=== PATIENT | female | born 1990 | race Caucasian/White ===

== ENCOUNTER 2016-08-06 08:23 | Inpatient (IN) | payer BC, MEDICAID ==
[2016-08-06] MEDS ORDERED: Dinoprostone* 10 MG VAG.SUPP VAGINAL ONE (09:16)
[2016-08-07] MEDS ORDERED: Nalbuphine* 20 MG/ML 1 ML VIAL IV ONE (00:28)
[2016-08-07] MEDS ORDERED: Promethazine INJ(RESTRICTED)* 25 MG/ML 1 ML VIAL IV ONE (00:28)
[2016-08-07] MEDS ORDERED: Oxytocin in LR* 20 UNITS/1,000 ML BAG IVPB ONE (08:43)
[2016-08-07] MEDS ORDERED: Oxytocin in LR* 20 UNITS/1,000 ML BAG IVPB SCH (09:00)
[2016-08-07 10:11] LABS: Hematocrit 35 % (35-47); Hemoglobin 11.8 g/dl (12.0-16.0); Mean Corpuscular HGB Conc 34 g/dl (31-36); Mean Corpuscular Hemoglobin 31 pg (27-31); Mean Corpuscular Volume 91 fL (80-97); Mean Platelet Volume 12 um3 (7.4-10.4); Red Blood Count 3.83 10^6/ul (4.0-5.4); Red Cell Distribution Width 14 % (10.5-15); White Blood Count 11.2 10^3/ul (3.5-10.8)
[2016-08-07 10:15] LABS: Add Diff/Slide Review? Slide Review Added; Comments Flag Yes
[2016-08-07 12:58] LABS: Mono Internal Control QC Line Present
[2016-08-07] MEDS ORDERED: OBEPIDURAL* 250 ML ONE (14:20)
[2016-08-07] MEDS ORDERED: Sodium Citrate/Citric Acid* 15 ML UDC ONE (18:02)
[2016-08-07] MEDS ORDERED: Sodium Citrate/Citric Acid* 15 ML UDC PO ONE ×2 (18:04→18:54)
[2016-08-07] MEDS ORDERED: ceFOXitin 2 GM IVPREMIX* 2 GM/50 ML BAG IVPB ONE (18:04)
[2016-08-07] MEDS ORDERED: ceFOXitin 2 GM IVPREMIX* 2 GM/50 ML BAG ONE (18:10)
[2016-08-07] MEDS ORDERED: Sodium Bicarbonate 8.4% SYR* 10 ML SYRINGE ONE (18:43)
[2016-08-07] MEDS ORDERED: OXYTOCIN* 10 UNITS/ML 1 ML VIAL ONE ×2 (18:43→19:01)
[2016-08-07] MEDS ORDERED: Ondansetron INJ* 2 MG/ML VIAL ONE (18:43)
[2016-08-07] MEDS ORDERED: Morphine PF AMP (0.5MG/ML)* 5 MG/10 ML AMP ONE (18:43)
[2016-08-07] MEDS ORDERED: Lidocaine 2% EPI 1:200000 MPF* 20 ML VIAL ONE (18:43)
[2016-08-07] MEDS ORDERED: Buffered Lidocaine 1% SYR 3ML* 3 ML/SYR SYRINGE INTRADERM ONE (18:54)
[2016-08-07] MEDS ORDERED: diPHENhydraMINE IV* 50 MG/ML 1 ml VIAL (BENADRYL) IV PRN (18:55)
[2016-08-07] MEDS ORDERED: Nalbuphine* 20 MG/ML 1 ML VIAL IV PRN (18:55)
[2016-08-07] MEDS ORDERED: PROCHLORPERAZINE INJ 5 MG/ML 2 ML VIAL IV PRN (18:55)
[2016-08-07] MEDS ORDERED: DiMENhydriNATE IV* 50 MG/ML VIAL IV PUSH PRN ×2 (18:55→18:59)
[2016-08-07] MEDS ORDERED: Ondansetron INJ* 2 MG/ML VIAL IV PRN ×2 (18:55→18:59)
[2016-08-07] MEDS ORDERED: Naloxone* 0.4 MG/ML 1 ML VIAL IV PRN (18:55)
[2016-08-07] MEDS ORDERED: PROCHLORPERAZINE INJ 5 MG/ML 2 ML VIAL ONE (18:56)
[2016-08-07] MEDS ORDERED: fentaNYL* 50 MCG/ML 2 ML VIAL (100 MCG VIAL) IV PRN (18:59)
[2016-08-07] MEDS ORDERED: Scopolamine 1.5 mg* PATCH TRANSDERM PRN (18:59)
[2016-08-07] MEDS ORDERED: Scopolamine 1.5 mg* PATCH TRANSDERM SCH (19:00)
[2016-08-07] MEDS ORDERED: Scopolamine PATCH Remove* 1 NOTE MISC PATCH OFF SCH (19:00)
[2016-08-07] MEDS ORDERED: Phenylephrine IV* 40 MCG/ML 10 ML SYRINGE ONE (19:23)
[2016-08-07] MEDS ORDERED: Glycerin ADULT SUPP PR PRN (19:27)
[2016-08-07] MEDS ORDERED: Dibucaine 1% 28.35 GM TUBE PR PRN (19:27)
[2016-08-07] MEDS ORDERED: Witch Hazel PAD* JAR TOPICAL PRN (19:27)
[2016-08-07] MEDS ORDERED: Acetaminophen TAB* 325 MG PO PRN (19:27)
[2016-08-07] MEDS: Ibuprofen TAB* 600 MG PO PRN (20:33)
[2016-08-07] MEDS: Docusate CAP* 100 MG PO SCH (22:59)
[2016-08-07] MEDS: Simethicone TAB* 80 MG TAB.CHEW PO SCH (22:59)
[2016-08-07] MEDS: oxyCODONE/Acetamin 5/325 MG* TAB PO PRN (23:03)
[2016-08-08] MEDS: Ibuprofen TAB* 600 MG PO PRN ×3 (03:34→16:46)
[2016-08-08] MEDS: oxyCODONE/Acetamin 5/325 MG* TAB PO PRN ×5 (03:46→20:48)
[2016-08-08 06:57] LABS: Hematocrit 30 % (35-47); Mean Corpuscular HGB Conc 34 g/dl (31-36); Mean Corpuscular Hemoglobin 31 pg (27-31); Mean Corpuscular Volume 91 fL (80-97); Mean Platelet Volume 11 um3 (7.4-10.4); Red Blood Count 3.24 10^6/ul (4.0-5.4); Red Cell Distribution Width 14 % (10.5-15); White Blood Count 14.6 10^3/ul (3.5-10.8)
[2016-08-08 07:18] LABS: Comments Flag Yes
[2016-08-08] MEDS: Simethicone TAB* 80 MG TAB.CHEW PO SCH ×4 (07:26→20:48)
[2016-08-08] MEDS: Docusate CAP* 100 MG PO SCH ×3 (07:27→20:48)
--- NOTE | 2016-08-08 08:31 | OP ---
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 Gaye Shay, certified nurse cylinder grinder. 2. Sayra Weeks, licensed weigher. ANESTHESIA: Epidural. PRE-OP DIAGNOSES: Intrauterine at 39 weeks, gestational diabetes, with induction of labor with persistent category II tracing, remote from delivery. POST-OP DIAGNOSES: Intrauterine at 39 weeks, gestational diabetes, with induction of labor with persistent category II tracing, remote from delivery. OPERATIVE PROCEDURE: Primary low-transverse section. ESTIMATED BLOOD LOSS: 600 cc. SPECIMEN SENT TO PATHOLOGY: Cord blood. FINDINGS: Delivery of a viable female weighing 6 pounds 2 ounces with Apgars of 9 and 9 with clear fluid. IV FLUIDS: She received 1400 cc of IV crystalloid fluid. URINE OUTPUT: 400 cc of clear urine. ESTIMATED BLOOD LOSS: 600 cc. INTRAOPERATIVE FINDINGS: Intraoperatively, she had a normal uterus, bowel, bladder, and adnexa. COMPLICATIONS: There were no complications. DESCRIPTION OF PROCEDURE: The patient was taken to the operating room where she was identified. She was placed on the operating room table where an epidural anesthetic was obtained without difficulty. She was then placed in a supine position with a leftward tilt, prepped and draped in normal sterile fashion. A Pfannenstiel skin incision was made with a knife and carried through to the underlying layer of fascia. The facia was then nicked in the midline and extended laterally with curved Camejo scissors. The fascia was then grasped superiorly and inferiorly with Orlin clamps and dissected off sharply from the rectus muscle. The rectus muscle was in the midline bluntly. The peritoneum was identified, grasped with pickups, entered sharpy with Metzenbaum scissors, and extended superiorly and inferiorly sharply. A bladder blade was inserted in the patient's abdomen. A bladder flap was created over which the bladder blade was then reinserted. A low transverse uterine incision was made with the knife. The uterine incision was then extended laterally. The amniotic sac was ruptured. The infant's head was then grasped and delivered atraumatically. The nose and mouth were suctioned at the incision site. The rest of the infant's body was then delivered atraumatically. The cord was clamped and cut, and the infant was handed off to awaiting bag washer. Cord bloods were obtained. The placenta was then removed manually. The uterus was then exteriorized and cleared of all clot and debris using moist laparotomy sponges. The uterine incision was then closed using 0 Polysorb suture in a running locked fashion with a second imbricating layer of 0 Polysorb suture with good hemostasis. The uterus was then returned to the patient's abdomen. The gutters were then cleared of all clots and debris using moist laparotomy sponges. Two [id number] stitches were then used to completely obtain hemostasis of the uterine incision. Once hemostasis was obtained, the sponge, lap, and needle counts were correct x2. All instruments were removed from the patient's abdomen. The peritoneum was then closed using 3 -0 Polysorb suture in a running fashion. The fascia was closed using 0 Polysorb suture in a running fashion, and the skin was closed with 4-0 Vicryl in a subcuticular stitch. The patient tolerated the procedure well. Sponge, lap, and needle counts were correct x2. She was then transferred to the recovery room area in stable condition. [id number]/[facility] #: [id number] SRIKANTH
[2016-08-08] MEDS ORDERED: Ferrous Gluconate TAB* 324 MG TAB PO SCH (09:00)
[2016-08-08] MEDS ORDERED: Zolpidem TAB* 5 MG PO PRN (11:00)
[2016-08-09] MEDS: Ibuprofen TAB* 600 MG PO PRN ×4 (00:54→21:59)
[2016-08-09] MEDS: oxyCODONE/Acetamin 5/325 MG* TAB PO PRN ×5 (01:00→21:59)
[2016-08-09] MEDS: Docusate CAP* 100 MG PO SCH ×3 (07:55→21:59)
[2016-08-09] MEDS: Simethicone TAB* 80 MG TAB.CHEW PO SCH ×4 (07:56→21:59)
[2016-08-10] MEDS: oxyCODONE/Acetamin 5/325 MG* TAB PO PRN ×3 (02:10→12:36)
[2016-08-10 08:27] VITALS: BP 115/68
[2016-08-10] MEDS: Ibuprofen TAB* 600 MG PO PRN (08:35)
[2016-08-10] MEDS: Simethicone TAB* 80 MG TAB.CHEW PO SCH ×2 (08:35→12:36)
[2016-08-10] MEDS: Docusate CAP* 100 MG PO SCH (08:35)
[2016-08-10] MEDS ORDERED: Scopolamine PATCH Remove* 1 NOTE MISC PATCH OFF ONE (19:00)
== END 2016-08-10 12:50 | disposition home or self-care (01) | DRG 540 ==
LOC: MCHOBOUT 08:23 → MCHOB 19:21
PROVIDERS: ADMIT Nurse Practitioner; ATTEND Obstetrics & Gynecology
PROC: 10907ZC Drainage of Amniotic Fluid, Therapeutic from Products of Conception, Via Natural or Artificial Opening (ICD-10-PCS; 2016-08-07)
PROC: 3E033VJ Introduction of Other Hormone into Peripheral Vein, Percutaneous Approach (ICD-10-PCS; 2016-08-07)
PROC: 10D00Z1 Extraction of Products of Conception, Low, Open Approach (ICD-10-PCS; principal; 2016-08-07 18:24)
DX: O76 Abnormality in fetal heart rate and rhythm complicating labor and delivery (principal); O24.420 Gestational diabetes mellitus in childbirth, diet controlled; F31.9 Bipolar disorder, unspecified; O99.334 Smoking (tobacco) complicating childbirth; F17.210 Nicotine dependence, cigarettes, uncomplicated; O99.344 Other mental disorders complicating childbirth; Z3A.39 39 weeks gestation of pregnancy; Z37.0 Single live birth
CPT/HCPCS: 36415; 85025; 85060; 86308; 86850; 86900; 86901; A9270-GY; J0694; J0780; J2300; J2405; J2550; J2590

== ENCOUNTER 2016-10-09 08:37 | Emergency (ER) | payer BC, MEDICAID ==
[2016-10-09 08:57] VITALS: BP 117/67
[2016-10-09] MEDS ORDERED: Ipratropium 0.5MG/2.5ML NEB* 0.5 MG/2.5 ML NEB.SOLN INH ONE (09:09)
[2016-10-09] MEDS ORDERED: Albuterol 2.5 MG/3 ML NEB.SOL* (0.083%) INH ONE (09:09)
--- NOTE | 2016-10-09 09:09 | UC ---
Respiratory Complaint HPI - HPI Summary HPI Summary: GRADUAL ONSET OF DYSPNEA STARTING YESTERDAY MORNING. WORSE SINCE THEN. HAS PAIN WITH DEEP INSPIRATION AND ST. ALSO HAS CHEST TIGHTNESS. HAS H/O "NARROW AIRWAY" AND HAS SIMILAR SYMPTOMS WITH HEAVY EXERTION BUT DENIES ANY INCREASED PHYSICAL ACTIVITY RECENTLY. DID NOT USE HER INHALER. IS 2 MONTH S/P . SMOKES 4 CIGS PER DAY. NO FAMILY H/O BLOOD CLOT. DENIES FEVER. - History of Current Complaint Chief Complaint: UCRespiratory Stated Complaint: CHEST CONGESTION Time Seen by Provider: 10/09/16 09:01 Hx Obtained From: Patient Hx Last Menstrual Period: post 2 months Onset/Duration: Gradual Onset, Lasting Days, Still Present Timing: Constant Severity Initially: Moderate Severity Currently: Moderate Pain Intensity: 8 Pain Scale Used: 0-10 Numeric Aggravating Factors: Deep Breaths Alleviating Factors: Nothing Associated Signs And Symptoms: Positive: Dyspnea, Pleuritic Chest Pain. Negative: Fever, Chills, Wheezing, Hemoptysis, Dizziness, Calf Pain, Calf Swelling, Edema, URI, Nasal Congestion, Hoarseness, Sinus Discomfort - Allergies/Home Medications Allergies/Adverse Reactions: Allergies Allergy/AdvReac Type Severity Reaction Status Date / Time No Known Allergies Allergy Verified 08/06/16 08:47 PMH/Surg Hx/FS Hx/Imm Hx Endocrine History Of: Denies: Diabetes, Thyroid Disease Cardiovascular History Of: Denies: Cardiac Disorders, Hypertension Respiratory History Of: Denies: COPD, Asthma GI/ History Of: Denies: Ulcer Psychological History Of: Reports: Anxiety, Depression, Bipolar Disorder - Surgical History Surgical History: Yes Surgery Procedure, Year, and Place: tonsils and adenoids removed, . appy - Family History Known Family History: Positive: Cardiac Disease, Diabetes - Social History Alcohol Use: Rare Alcohol Amount: social Substance Use Type: None Smoking Status (MU): Light Every Day Tobacco Smoker Type: Cigarettes Amount Used/How Often: 4 cig/day Length of Time of Smoking/Using Tobacco: 7-8 years Have You Smoked in the Last Year: Yes Household Exposure Type: Cigarettes - Immunization History Most Recent Influenza Vaccination: unknown Most Recent Tetanus Shot: 05/22/16 Most Recent Pneumonia Vaccination: never Review of Systems Constitutional: Negative ENT: Sore Throat Respiratory: Shortness Of Breath Cardiovascular: Chest Pain Gastrointestinal: Negative All Other Systems Reviewed And Are Negative: Yes Physical Exam Triage Information Reviewed: Yes Appearance: Well-Appearing, No Pain Distress, Well-Nourished Vital Signs: Initial Vital Signs Temp 98.0 F 10/09/16 08:53 Pulse 92 10/09/16 08:53 Resp 22 10/09/16 08:53 BP 117/67 10/09/16 08:53 Pulse Ox 99 10/09/16 08:53 Vital Signs Reviewed: Yes Eyes: Positive: Conjunctiva Clear ENT: Positive: Hearing grossly normal Neck: Positive: Supple, Nontender, No Lymphadenopathy Respiratory: Positive: Normal breath sounds, Accessory muscle use Cardiovascular Exam: Normal Abdomen Description: Positive: Soft Musculoskeletal: Positive: No Edema Neurological: Positive: Alert Psychological: Positive: Age Appropriate Behavior Skin: Negative: rashes UC Diagnostic Evaluation - Laboratory O2 Sat by Pulse Oximetry: 99 - Radiology Xray Interpretation: No Acute Changes - CXR Radiology Interpretation Completed By: Radiologist Respiratory Course/Dx - Course Course Of Treatment: FELT BETTER AFTER DUONEB. CXR UNREMARKABLE. DISCUSSED TRANSFER TO ER FOR FURTHER EVALUATION. PT DECLINES. ADVISED TO GO TO ER WITHOUT FAIL IF SX DO NOT CONTINUE TO IMPROVE. - Differential Dx/Diagnosis Provider Diagnoses: BRONCHOSPASM Discharge - Discharge Plan Condition: Stable Disposition: HOME Patient Education Materials: Bronchospasm (ED) Referrals: Jose Rodriguez MD [Primary Care Provider] - If Needed Additional Instructions: CHEST XRAY UNREMARKABLE. USE YOUR INHALER NEEDED FOR SYMPTOM CONTROL. IF YOUR SYMPTOMS DO NOT CONTINUE TO IMPROVE GO TO THE ER WITHOUT FAIL FOR FURTHER EVALUATION.
--- NOTE | 2016-10-09 10:26 | RAD ---
INDICATION: Short of breath COMPARISON: None TECHNIQUE: PA and lateral dual-energy views were obtained. FINDINGS: Bones/Soft Tissues: There are no acute bony findings. Cardiomediastinal: The cardiomediastinal silhouette is normal. Lungs: There are no infiltrates. Pleura: There are no pleural effusions. Other: None IMPRESSION: NO ACTIVE DISEASE.
== END 2016-10-09 10:39 | disposition home or self-care (01) ==
LOC: UCEAST 08:37
DX: J98.01 Acute bronchospasm (principal); F41.9 Anxiety disorder, unspecified; F31.9 Bipolar disorder, unspecified; F17.210 Nicotine dependence, cigarettes, uncomplicated
CPT/HCPCS: 71020; 99212; G0463; J7644

== ENCOUNTER 2018-11-17 00:27 | Inpatient (IN) | payer SELFPAY ==
[2018-11-17] MEDS ORDERED: Lactated Ringers 1000 ML Bag* 1,000 ML IV ONE (00:41)
[2018-11-17] MEDS ORDERED: Buffered Lidocaine 1% SYRIN* 1 ML/SYRINGE INTRADERM ONE (00:41)
--- NOTE | 2018-11-17 00:50 | HP ---
General Information - Reason for Visit Patient presents in labor. - General Information Maternal Age: 26 Grav: 2 Para: 1 SAB: 0 IEA: 0 Estimated Due Date: 11/22/18 Determined By: Early Ultrasound Gestational Age in Weeks/Days: 39 Maternal Blood Type and Rh: O Positive - Results this Serology/RPR Result: Non-Reactive Rubella Result: Immune HBsAg Result: Negative HIV Result: Negative GBS Culture Result: Negative Past Medical History Delivery History: Hx C/Section, See Records Pertinent Past Medical History: See Records Past Medical History Comment: Bipolar disorder Asthma Migraines Pertinent Past Surgical History: See Records Past Surgical History Comment: Tonsillectomy Appendectomy section Pertinent Family History: See Records - Antepartal Records Antepartal Records: Reviewed, Complicated by: - Thrombocytopenia Review of Systems Constitutional: Uncomfortable CV Complaint: No Respiratory: Shortness of Breath: No Gastrointestinal: No Nausea/Vomiting, Normal Bowel Movement Genitourinary: No Dysuria, No Bleeding, No Leaking Fluid Musculoskeletal: No Complaint, No Epigastric Pain Neurological: No Headache, No Visual Changes Movement: Normal Exam Allergies/Adverse Reactions: Allergies No Known Allergies Allergy (Verified 08/06/16 08:47) Temp 97.0 RR 18 BP 107/54 - Measurements Height: 5 ft 5 in Weight: 152 lb Body Mass Index (BMI): 25.2 Pre- Weight: 128 lb - Exam Breast: Breast Exam Deferred CVA: No CVA Tenderness Extremities: No Edema Heart: Normal Rhythm/Heart Sounds HEENT: No Significant Findings Lungs: Clear Bilaterally Rectal: Rectal Exam Deferred Reflexes: DTR 2+ Thyroid: No Thyromegaly - Abdominal Exam Abdomen Exam: Non-Tender, Fundal Height Consistent with Dates - Ultrasound/Biophysical Profile Ultrasound Status: Not Done Targeted Exam Findings See L&D Outpatient Visit Provider Note for Findings: N/A Cervical Exam: 5cm Effacement: 90% Station: 0 Presenting Part: Vertex Membrane Status: Intact EFM Findings - External Monitor Findings Baseline Heart Rate: 130 Contractions: Regular, Moderate, 45-90 Seconds Assessment/Plan - Assessment Patient with at term in labor, Hx prior section. - Obstetrical Risk Factors Obstetrical Risk Factors: Previous C/Section in Labor, Psychosocial Issues, Psychiatric Issues - Plan Plan: IV Hydration, Admit - Anticipate Vaginal Delivery - Date/Time of Admission Date of Admission: 11/17/18 Time of Admission: 23:50
[2018-11-17] MEDS ORDERED: Lactated Ringers 1000 ML Bag* 1,000 ML IV SCH ×2 (01:00→02:00)
[2018-11-17 01:19] LABS: Hematocrit 35 % (35-47); Hemoglobin 11.9 g/dL (12.0-16.0); Mean Corpuscular HGB Conc 34 g/dL (31-36); Mean Corpuscular Hemoglobin 30 pg (27-31); Mean Corpuscular Volume 89 fL (80-97); Red Blood Count 3.98 10^6 /uL (3.70-4.87); Red Cell Distribution Width 14 % (10.5-15); White Blood Count 16.8 10^3/uL (3.5-10.8)
[2018-11-17] MEDS ORDERED: Oxytocin in LR* 20 UNITS/1,000 ML BAG IVPB ONE (01:19)
[2018-11-17 01:30] LABS: ABS Basophils 0.1 10^3/ul (0-0.2); ABS Eosinophils 0.1 10^3/ul (0-0.6); ABS Lymphocytes 4.5 10^3/ul (1.0-4.8); ABS Monocytes 1.1 10^3/ul (0-0.8); Eosinophil % 0.5 %; Nucleated Red Blood Cells % 0.1
[2018-11-17 01:45] LABS: Mean Platelet Volume 11.6 fL (7.4-10.4); Platelet Count 101 10^3/uL (150-450)
[2018-11-17 01:46] LABS: Large Platelets Present
[2018-11-17] MEDS ORDERED: Dibucaine 1% 28.35 GM TUBE PR PRN (01:46)
[2018-11-17] MEDS ORDERED: Witch Hazel PAD* JAR TOPICAL PRN (01:46)
[2018-11-17] MEDS ORDERED: Glycerin ADULT SUPP PR PRN (01:46)
--- NOTE | 2018-11-17 01:46 | PROCNOTE ---
[facility] OB: Delivery Note - Delivery A Date of : 11/17/18 [place] Sex: Male [place] Weight at : 6 lb 5 oz Score 1 Minute: 8 Score 5 Minutes: 9 Gestational Age in Weeks and Days at Delivery: 39 Weeks and 2 Days Delivery Method: Spontaneous Vaginal Labor: Spontaneous Did Patient attempt ?: Yes, Successful Amniotic Fluid: Meconium Estimated Blood Loss: 200 Anesthesia/Analgesia: None Delivered By: Tucker Chandler - Nursery Level of Nursery: Regular/Bedside - Perineum Perineal Injury: Vaginal Laceration, 2nd Degree - Left labial tear thru and thru repaired with 4 -o velosorb - Events Delivery Events of Note: Pitocin Only After Delivery, Precipitous Delivery
[2018-11-17] MEDS: Ibuprofen TAB* 600 MG PO PRN ×3 (02:51→18:19)
[2018-11-17] MEDS ORDERED: Simethicone TAB* 80 MG TAB.CHEW PO SCH (08:30)
[2018-11-17] MEDS: Docusate CAP* 100 MG PO SCH ×2 (14:35→20:04)
[2018-11-17] MEDS: Acetaminophen TAB* 325 MG PO PRN (18:25)
[2018-11-18] MEDS: Ibuprofen TAB* 600 MG PO PRN ×3 (00:59→14:32)
[2018-11-18 07:19] LABS: ABS Basophils 0.1 10^3/ul (0-0.2); ABS Eosinophils 0.2 10^3/ul (0-0.6); ABS Lymphocytes 3.7 10^3/ul (1.0-4.8); ABS Monocytes 0.9 10^3/ul (0-0.8); ABS Neutrophils 8.2 10^3/ul (1.5-7.7); Eosinophil % 1.6 %; Hematocrit 31 % (35-47); Hemoglobin 10.4 g/dL (12.0-16.0); Lymphocyte % 28.1 %; Mean Corpuscular HGB Conc 33 g/dL (31-36); Mean Corpuscular Hemoglobin 30 pg (27-31); Mean Corpuscular Volume 91 fL (80-97); Mean Platelet Volume 12.3 fL (7.4-10.4); Nucleated Red Blood Cells % 0.1; Platelet Count 84 10^3/uL (150-450); Red Blood Count 3.43 10^6 /uL (3.70-4.87); Red Cell Distribution Width 14 % (10.5-15); White Blood Count 13.1 10^3/uL (3.5-10.8)
[2018-11-18] MEDS: Acetaminophen TAB* 325 MG PO PRN ×2 (08:24→14:33)
[2018-11-18] MEDS: Docusate CAP* 100 MG PO SCH ×3 (08:24→14:57)
[2018-11-18] MEDS ORDERED: Ferrous Gluconate TAB* 324 MG TAB PO SCH (09:00)
[2018-11-18 09:41] VITALS: BP 106/74
== END 2018-11-18 16:45 | disposition home or self-care (01) | DRG 806 ==
LOC: MCHOBOUT 00:27 → MCHOB 00:39
PROVIDERS: ADMIT Obstetrics & Gynecology; ATTEND Obstetrics & Gynecology
PROC: 10E0XZZ Delivery of Products of Conception, External Approach (ICD-10-PCS; principal; 2018-11-17)
PROC: 0KQM0ZZ Repair Perineum Muscle, Open Approach (ICD-10-PCS; 2018-11-17)
DX: O99.334 Smoking (tobacco) complicating childbirth (principal); O99.12 Other diseases of the blood and blood-forming organs and certain disorders involving the immune mechanism complicating childbirth; Z37.0 Single live birth; O99.344 Other mental disorders complicating childbirth; F31.9 Bipolar disorder, unspecified; O99.52 Diseases of the respiratory system complicating childbirth; O70.1 Second degree perineal laceration during delivery; O62.3 Precipitate labor; O77.0 Labor and delivery complicated by meconium in amniotic fluid; J45.909 Unspecified asthma, uncomplicated; O34.211 Maternal care for low transverse scar from previous cesarean delivery; Z3A.39 39 weeks gestation of pregnancy
CPT/HCPCS: 36415; 85025; 86850; 86900; 86901; 88307; 99282; A9270-GY